=== PATIENT | female | born 1970 | race Two or more races ===

== ENCOUNTER 2023-08-16 06:00 | Day surgery (SDC) | payer OTHER ==
[2023-08-09 10:02] LABS: PH,URINE 7.5 (5.0-8.0); URINE APPEARANCE Clear; URINE BILIRRUBIN Negative (NEGATIVE); URINE BLOOD Trace; URINE COLOR Yellow; URINE GLUCOSE Negative (NEGATIVE); URINE LEUKOCYTE Negative; URINE NITRATE Negative; URINE PROTEIN Negative (NEGATIVE); URINE UROBILINOGEN 0.2 E.U./dl
[2023-08-09 10:04] LABS: URINE BACTERIA 311.1 uL (0.0-1933); URINE RBC 11.7 uL (0.0-20.8); URINE WBC 2.9 uL (0.0-23.2)
[2023-08-09 10:17] LABS: HEMATOCRIT 35.2 % (36.0-45.00); MEAN CELL VOLUME 96.2 fL (80.00-100.00); MEAN CORPUSCULAR HEMOGLOBIN 32.8 pg (27.00-32.0); MEAN CORPUSCULAR HGB CONC 34.1 g/dl (32.0-36.0); PLATELET COUNT 259 K/uL (150-450); RED BLOOD COUNT 3.66 M/uL (4.00-6.00); RED CELL DISTRIBUTION WIDTH 13.6 % (11.5-14.5)
[2023-08-09 10:25] LABS: INR 0.94; PARTIAL THROMBOPLASTIN TIME 26.2 SECONDS (22.0-34.0)
[2023-08-09 10:36] LABS: PROTHROMBIN TIME 9.9 SECONDS (9.0-11.5)
[2023-08-09 10:40] LABS: BILIRUBIN TOTAL 0.39 mg/dL (0.3-1.2); CALCIUM 9.5 mg/dL (8.5-10.1); CREATININE SERUM 0.73 mg/dL (0.55-1.02); GFR 84.05; GLOBULINA 3.7 G/DL (2.4-3.5); POTASSIUM 4.65 mEq/L (3.5-5.1); TOTAL PROTEIN 7.7 gm/dL (6.4-8.2)
== END 2023-08-16 11:15 | disposition home or self-care (01) ==
LOC: CIR.AMB 06:00
PROVIDERS: ATTEND Orthopaedic Surgery
DX: M75.42 Impingement syndrome of left shoulder (principal); M75.22 Bicipital tendinitis, left shoulder; M75.122 Complete rotator cuff tear or rupture of left shoulder, not specified as traumatic; M24.112 Other articular cartilage disorders, left shoulder; Z20.822 Contact with and (suspected) exposure to COVID-19

== ENCOUNTER 2024-03-27 05:30 | Day surgery (SDC) | payer OTHER ==
[2024-03-18 12:00] LABS: URINE APPEARANCE Clear; URINE BILIRRUBIN Negative (NEGATIVE); URINE BLOOD Small; URINE COLOR Yellow; URINE GLUCOSE Negative (NEGATIVE); URINE LEUKOCYTE Negative; URINE NITRATE Negative; URINE PROTEIN Negative (NEGATIVE); URINE UROBILINOGEN 0.2 E.U./dl
[2024-03-18 12:01] LABS: URINE BACTERIA 462.3 uL (0.0-1933); URINE EPITHELIAL CELLS 21.3 uL (0.0-38.8); URINE RBC 30.2 uL (0.0-20.8)
[2024-03-18 12:03] LABS: HEMATOCRIT 35.1 % (36.0-45.00); HEMOGLOBIN 12.1 g/dL (12.0-15.00); MEAN CELL VOLUME 94.8 fL (80.00-100.00); MEAN CORPUSCULAR HEMOGLOBIN 32.7 pg (27.00-32.0); MEAN CORPUSCULAR HGB CONC 34.5 g/dl (32.0-36.0); PLATELET COUNT 278 K/uL (150-450); RED CELL DISTRIBUTION WIDTH 13.1 % (11.5-14.5)
[2024-03-18 12:52] LABS: BILIRUBIN TOTAL 0.25 mg/dL (0.3-1.2); CALCIUM 9.7 mg/dL (8.5-10.1); CREATININE SERUM 0.75 mg/dL (0.55-1.02); GFR 81.47; POTASSIUM 4.71 mEq/L (3.5-5.1)
[2024-03-18 12:58] LABS: INR 0.94; PARTIAL THROMBOPLASTIN TIME 26.2 SECONDS (22.0-34.0); PROTHROMBIN TIME 9.9 SECONDS (9.0-11.5)
[~2024-03-27] VITALS: Ht 157.5 cm; Wt 59.0 kg
[~2024-03-27 05:30] MED LIST: [UNRECOGNIZED DRUG - OTHER] PO
[2024-03-27] MEDS ORDERED: CEFAZOLIN SODIUM 1,000 MG VIAL ONE (07:03)
[2024-03-27] MEDS ORDERED: LIDOCAINE HCL 1%/EPINEPHRINE 20ML VIAL IJ ONE ×2 (07:19→08:15)
[2024-03-27] MEDS ORDERED: BUPIVACAINE HCL/MPF 0.5% 30ML VIAL ONE (07:19)
[2024-03-27] MEDS ORDERED: KETOROLAC TROMETHAMINE 30 MG VIAL ONE (07:19)
[2024-03-27] MEDS ORDERED: METHYLPREDNISOLONE ACETATE 80 MG/ML VIAL ONE (07:42)
[2024-03-27] MEDS ORDERED: KETOROLAC TROMETHAMINE 30 MG VIAL IM ONE (08:00)
[2024-03-27] MEDS ORDERED: BUPIVACAINE HCL 30 ML VIAL IJ ONE (08:00)
[2024-03-27] MEDS ORDERED: CEFAZOLIN SODIUM 1,000 MG in 0.9 % SODIUM CHLORIDE 50 ML IV ONE (08:00)
[2024-03-27] MEDS ORDERED: KETOROLAC TROMETHAMINE 30 MG VIAL IV ONE (08:00)
[2024-03-28] MEDS ORDERED: METHYLPREDNISOLONE ACETATE 80 MG/ML VIAL IJ ONE (14:30)
== END 2024-03-27 12:35 | disposition home or self-care (01) ==
LOC: CIR.AMB 05:30
PROVIDERS: ATTEND Orthopaedic Surgery
DX: M75.02 Adhesive capsulitis of left shoulder (principal); M75.42 Impingement syndrome of left shoulder